=== PATIENT | female | born 1970 | race Caucasian/White ===

== ENCOUNTER → 2017-07-06 | Outpatient (CLI) | payer BC ==
[~2017-07-06] MED LIST: AMOXICILLIN 50500 MG PO; NORCO 325 MG-51 TAB PO; SYNTHROID0.125 MG/T PO; ZOLOFT 100MG100 MG PO
== END ==
LOC: COL.CARD 09:00
DX: R94.01 Abnormal electroencephalogram [EEG] (principal); Z90.09 Acquired absence of other part of head and neck